=== PATIENT | male | born 1975 | race Caucasian/White ===

== ENCOUNTER 2023-01-12 18:39 | Inpatient (IN) | payer OTHER ==
[2023-01-12] MEDS: Propofol 1,000 MG/100 ML VIAL IV PRN (20:15)
[2023-01-12 20:33] LABS: Actual Bicarbonate (HCO3a) 22.3 mEq/L (22-28); Base Excess (BEa) -0.3 mEq/L (-2.0 to +3.0); CO2 Tension 31.1 mmHg (35.0-45.0); Calcium, Ionized (arterial) 1.17 mmol/L (1.12-1.30); Carboxyhemoglobin (COHb) 0.6 gm% (0.0-3.0); Hematocrit-ABG 43 % (42.0-52.0); Hemoglobin (Hb) 14.7 g/dL (14.0-18.0); O2 Tension (PaO2), arterial 102.2 mmHg (80.0-100.0); Potassium - ABG Lab 4.24 mmol/L (3.70-5.30); pH, Arterial 7.474 (7.35-7.45)
[2023-01-12 20:34] LABS: ALV-art Gradient 72.825 mmHg (0-20); Puncture Site RRA
[2023-01-12 21:15] VITALS: BMI 22.0
[2023-01-12] MEDS ORDERED: Ondansetron PF 4 MG/2 ML Vial IVP PRN (21:21)
[2023-01-12] MEDS ORDERED: Ventilator Sedation Protocol 1 EACH FS ONE (21:39)
[2023-01-12] MEDS: Sodium Chloride 0.9% 1,000 ML IV SCH (21:53)
[2023-01-12] MEDS ORDERED: Fentanyl BOLUS 250 ML IVPB PRN (22:00)
[2023-01-12] MEDS ORDERED: DISCONTINUE PREVIOUS NARCOTIC PAIN MEDICATIONS AND BENZODIAZEPINES FS SCH (22:00)
[2023-01-12] MEDS ORDERED: Propofol BOLUS 1,000 MG/100 ML VIAL IV PRN (22:00)
[2023-01-12] MEDS ORDERED: Fentanyl CADD 100 ML IV SCH (22:00)
[2023-01-12] MEDS ORDERED: Morphine 2 MG/ML VIAL SLOW IVP PRN (22:00)
[2023-01-13] MEDS: Dexamethasone 4 mg/ml Vial SLOW IVP SCH ×5 (00:01→23:36)
[2023-01-13] MEDS: Propofol 1,000 MG/100 ML VIAL IV PRN ×3 (03:45→21:04)
[2023-01-13 06:42] LABS: #Monocytes 0.4 thou/uL (0.11-0.59); #Neutrophils 8.2 thou/uL (1.40-6.50); %Lymphocytes 4.3 % (21.0-51.0); %Monocytes 4.1 % (0.0-10.0); %Neutrophils 91.2 % (42.0-75.0); Hemoglobin 13.3 g/dL (14.0-18.0); Mean Corpuscular HGB CONC 33.8 g/dL (32.0-36.0); Mean Corpuscular Hemoglobin 29.6 pg (27.0-31.0); Mean Corpuscular Volume 87.3 fl (78.0-98.0); Mean Platelet Volume 10.2 fL (7.4-10.4); Platelet Count 306 10x3/uL (130-400)
[2023-01-13 07:10] LABS: ALT (SGPT) Less than 7 U/L (8-55); AST (SGOT) 10 U/L (5-34); Albumin 3.3 g/dL (3.5-5.0); Alkaline Phosphatase 65 U/L (40-110); Anion Gap 14 mmol/L (10-20); BUN (Urea Nitrogen) 11 mg/dL (8.9-20.6); Bilirubin, Total 0.6 mg/dL (0.2-1.2); Calc. Creatinine Clearance 113 mL/min (70-130); Calcium 9.1 mg/dL (7.8-10.44); Carbon Dioxide 22 mmol/L (22-29); Chloride 102 mmol/L (98-107); Estimated GFR 114; Globulin 2.8 g/dL (2.4-3.5); Glucose 127 mg/dL (70-105); Potassium 4.2 mmol/L (3.5-5.1); Protein, Total 6.1 g/dL (6.0-8.3); Sodium 134 mmol/L (136-145)
[2023-01-13 07:10] LABS: Actual Bicarbonate (HCO3a) 22.9 mEq/L (22-28); Base Excess (BEa) -0.2 mEq/L (-2.0 to +3.0); CO2 Tension 33.2 mmHg (35.0-45.0); Calcium, Ionized (arterial) 1.18 mmol/L (1.12-1.30); Carboxyhemoglobin (COHb) 0.5 gm% (0.0-3.0); Hematocrit-ABG 44 % (42.0-52.0); Hemoglobin (Hb) 15.1 g/dL (14.0-18.0); O2 Tension (PaO2), arterial 131.8 mmHg (80.0-100.0); Potassium - ABG Lab 4.08 mmol/L (3.70-5.30); pH, Arterial 7.457 (7.35-7.45)
[2023-01-13 07:13] LABS: Puncture Site RRA
[2023-01-13] MEDS: Pantoprazole 40 MG VIAL IVP SCH (08:16)
[2023-01-13] MEDS: levETIRAcetam 500 MG/5 ML VIAL SLOW IVP SCH ×2 (08:20→21:23)
[2023-01-13] MEDS: Sodium Chloride 0.9% 1,000 ML IV SCH ×2 (08:23→17:39)
[2023-01-13] MEDS ORDERED: levETIRAcetam in NS 500 MG in Premix Bag 1 BAG IVPB SCH (09:00)
[2023-01-13] MEDS: Lorazepam 2 MG/ML VIAL SLOW IVP PRN (10:50)
[2023-01-13 16:59] LABS: Anion Gap 14 mmol/L (10-20); BUN (Urea Nitrogen) 15 mg/dL (8.9-20.6); Calc. Creatinine Clearance 100 mL/min (70-130); Calcium 8.7 mg/dL (7.8-10.44); Carbon Dioxide 21 mmol/L (22-29); Chloride 103 mmol/L (98-107); Estimated GFR 110; Glucose 120 mg/dL (70-105); Potassium 4.4 mmol/L (3.5-5.1); Sodium 134 mmol/L (136-145)
[2023-01-14] MEDS: Propofol 1,000 MG/100 ML VIAL IV PRN ×3 (04:05→17:34)
[2023-01-14] MEDS: Sodium Chloride 0.9% 1,000 ML IV SCH ×2 (04:06→15:31)
[2023-01-14 04:36] LABS: Anion Gap 15 mmol/L (10-20); BUN (Urea Nitrogen) 15 mg/dL (8.9-20.6); Calc. Creatinine Clearance 103 mL/min (70-130); Calcium 8.7 mg/dL (7.8-10.44); Carbon Dioxide 20 mmol/L (22-29); Chloride 106 mmol/L (98-107); Estimated GFR 110; Glucose 128 mg/dL (70-105); Magnesium 2.2 mg/dL (1.6-2.6); Potassium 4.3 mmol/L (3.5-5.1); Sodium 137 mmol/L (136-145)
[2023-01-14] MEDS: Dexamethasone 4 mg/ml Vial SLOW IVP SCH ×2 (06:00→12:47)
[2023-01-14] MEDS: Lorazepam 2 MG/ML VIAL SLOW IVP PRN ×2 (08:03→14:40)
[2023-01-14] MEDS: Pantoprazole 40 MG VIAL IVP SCH (09:15)
[2023-01-14] MEDS: levETIRAcetam 500 MG/5 ML VIAL SLOW IVP SCH (09:15)
[2023-01-14 12:33] VITALS: TEMP 97.6
[2023-01-14 14:17] VITALS: BP 109/94
== END 2023-01-14 17:45 | disposition short-term general hospital (02) | DRG 208 ==
LOC: CCU 20:04 → EEVIPCON 20:04
PROVIDERS: ADMIT Family Medicine; ATTEND Internal Medicine
PROC: 4A133R1 Monitoring of Arterial Saturation, Peripheral, Percutaneous Approach (ICD-10-PCS; principal; 2023-01-12)
PROC: 5A1945Z Respiratory Ventilation, 24-96 Consecutive Hours (ICD-10-PCS; 2023-01-12)
DX: C34.90 Malignant neoplasm of unspecified part of unspecified bronchus or lung (principal); G93.6 Cerebral edema; J96.01 Acute respiratory failure with hypoxia; C79.31 Secondary malignant neoplasm of brain; E87.1 Hypo-osmolality and hyponatremia; R56.9 Unspecified convulsions; R91.8 Other nonspecific abnormal finding of lung field
CPT/HCPCS: 31500; 36415; 36600; 51702; 70450; 70553; 71045; 71260; 74177; 80053; 80306; 80307; 81001; 82140; 82550; 82805; 83735; 84443; 85025; 87040; 93005; 94002; 94003; 94760; 96372; 96374; 96375; 99292; C9113; J0696; J1100; J1200; J1650; J1953; J2001; J2060; J2272; J2704; J3010; J3486; J7050; J7131